=== PATIENT | female | born 1975 | race Caucasian/White ===

== ENCOUNTER 2020-09-20 17:41 | Outpatient (CLI) | payer OTHER, SELFPAY | END 2020-09-20 17:42 | disposition home or self-care (01) | LOC: ANHCOVIDVC 17:42 | PROVIDERS: PCP Physician Assistant | DX: Z23 Encounter for immunization (principal) | CPT/HCPCS: 0001A; 91300 ==

== ENCOUNTER 2020-10-11 17:42 | Outpatient (CLI) | payer OTHER, SELFPAY | END 2020-10-11 17:43 | disposition home or self-care (01) | LOC: ANHCOVIDVC 17:42 | PROVIDERS: PCP Physician Assistant | DX: Z23 Encounter for immunization (principal) | CPT/HCPCS: 0002A; 91300 ==

== ENCOUNTER 2020-12-09 10:35 | Outpatient (CLI) | payer OTHER, SELFPAY ==
--- NOTE | 2020-12-09 10:45 | ECG_ITS ---
Measurements Intervals [place] Rate: 80 P: 67 NM: 143 QRS: 62 QRSD: 91 T: 66 QT: 347 QTc: 403 Interpretive Statements SINUS RHYTHM DELAYED PRECORDIAL R/S TRANSITION BORDERLINE T WAVE ABNORMALITY- ANTERIOR LEADS BORDERLINE ECG Electronically Signed On 12-09-2020 15:55:04 CDT by Tomas Reed D.O.
== END 2020-12-09 10:36 | disposition home or self-care (01) ==
PROVIDERS: PCP Physician Assistant; Visit Provider Obstetrics & Gynecology
DX: F17.210 Nicotine dependence, cigarettes, uncomplicated (principal); Z01.818 Encounter for other preprocedural examination; R94.31 Abnormal electrocardiogram [ECG] [EKG]
CPT/HCPCS: 93005

== ENCOUNTER → 2020-12-11 00:52 | Outpatient (CLI) | payer OTHER, SELFPAY ==
[2020-12-11 19:37] LABS: SARS-CoV-2 RNA PCR Negative
== END ==
PROVIDERS: PCP Physician Assistant; Visit Provider Obstetrics & Gynecology
DX: Z01.812 Encounter for preprocedural laboratory examination (principal); Z20.822 Contact with and (suspected) exposure to COVID-19
CPT/HCPCS: C9803; U0003; U0005

== ENCOUNTER 2020-12-15 00:08 | Day surgery (SDC) | payer OTHER, SELFPAY ==
[2020-12-03 15:38] VITALS: BMI 22.1
--- NOTE | 2020-12-14 10:36 | WPDANESEPPF ---
Anes - Initial Pre Proc Eval Procedure: Operation Date: 12/15/20 10:00 Proposed Procedures p Hysteroscopy, Angelia Endometrial Ablation, Laparoscopic Bilateral Salpingectomy - Sonu Mercado MD Date/Time: 12/14/20 10:36 Surgeon: Sonu Mercado MD Pre Op Diagnosis: menorrhaghia Patient Data Age: 45 Gender: F Height: 1.6 m Weight: 56.7 kg Allergies Allergy/AdvReac Type Severity Reaction Status Date / Time No Known Allergies Allergy Verified 12/03/20 15:36 Home Medications Medication Instructions Recorded Confirmed Type loratadine [Claritin] 10 mg PO DAILY 12/03/20 12/03/20 History norethindrone (contraceptive) 0.35 mg PO DAILY 12/03/20 12/03/20 History [Norlyda] [facility] Past Medical History Medical History Anxiety Depression Smoker Social History Social History Smoking packs per day: 1 Smoking cigarettes per day: 20.0 Years smoked: 22 Smoking pack-years: 22.00 Smoking status: Current every day smoker Tobacco type: cigarettes Alcohol intake: current Drinks per week: 12 Substance use: never Substance use type: does not use Spiritual care concerns: No Anes - Eval Final PreProcedure Day of Procedure 12/14/20 10:36 Patient weight: normal Heart: regular rate and rhythm Lungs: clear to auscultation and normal air movement Airway: Mallampati scale class II Neurological: alert and oriented Last oral intake: >/= 8 hours ASA classification: II Emergent: no Anesthetic plan: proceed Anesthesia type and monitoring: general ETT Informed Consent: The patient's anesthetic plan and its attendant risks and benefits were discussed with the patient/family/POA. Questions were solicited and answers provided to the satisfaction of the patient/family/POA.
[2020-12-15] VITALS (9 sets, daily range): BP systolic 95–111; BP diastolic 54–72; PULSE 51–85; RESP 16–18; TEMP 36.4–36.8; O2SAT 99–100
[2020-12-15] MEDS: LACTATED RINGERS 1,000 ML 30 ML IV CONT ×2 (08:45→12:17)
[2020-12-15] MEDS: ACETAMINOPHEN 500 MG TABLET 1000 MG PO (08:46)
[2020-12-15] MEDS: KETOROLAC 15 MG/ML VIAL (*BKC) IV PUSH (08:46)
--- NOTE | 2020-12-15 08:57 | P.PNAN_ITS ---
Anes - Initial Pre Proc Eval Procedure: Operation Date: 12/15/20 10:00 Proposed Procedures p Hysteroscopy, Angelia Endometrial Ablation, Laparoscopic Bilateral Salpingectomy - Sonu Mercado MD Date/Time: 12/15/20 08:57 Surgeon: Sonu Mercado MD Pre Op Diagnosis: menorrhaghia Patient Data Age: 45 Gender: F Height: 5 ft 3 in Weight: 56.7 kg Allergies Allergy/AdvReac Type Severity Reaction Status Date / Time No Known Allergies Allergy Verified 12/03/20 15:36 Home Medications Medication Instructions Recorded Confirmed Type loratadine [Claritin] 10 mg PO DAILY 12/03/20 12/03/20 History norethindrone (contraceptive) 0.35 mg PO DAILY 12/03/20 12/03/20 History [Norlyda] Patient hx anesthesia problems: none Family hx anesthesia problems: none [facility] Past Medical History Medical History Anxiety Depression Smoker Social History Social History Smoking packs per day: 1 Smoking cigarettes per day: 20.0 Years smoked: 22 Smoking pack-years: 22.00 Smoking status: Current every day smoker Tobacco type: cigarettes Alcohol intake: current Drinks per week: 12 Substance use: never Substance use type: does not use Living arrangements: alone Spiritual care concerns: No Anes - Eval Final PreProcedure Day of Procedure 12/15/20 08:57 Patient weight: normal Heart: regular rate and rhythm Lungs: clear to auscultation Airway: Mallampati scale Neurological: alert and oriented Last oral intake: >/= 8 hours ASA classification: II Emergent: no Anesthetic plan: proceed Anesthesia type and monitoring: general ETT and standard monitoring Informed Consent: The patient's anesthetic plan and its attendant risks and benefits were discussed with the patient/family/POA. Questions were solicited and answers provided to the satisfaction of the patient/family/POA.
[2020-12-15] MEDS: MIDAZOLAM HCL (*CRX) 2 MG/2 ML VIAL IV PUSH (09:02)
[2020-12-15 09:07] LABS: Glucose Point of Care 105 mg/dl (65-105)
--- NOTE | 2020-12-15 10:13 | WPDHPUPDATE1 ---
History and Physical Update Update Date/Time: 12/15/20 10:13 History and Physical has been reviewed, including an updated exam of the patient. There are NO changes in the patient's condition. Risks, benefits, and alternatives have been discussed and questions answered. Patient agrees to proceed with procedure.
--- NOTE | 2020-12-15 10:19 | W.PM.PROC2 ---
Procedure Note - Detailed Date of Procedure 12/15/20 Pre-op Diagnosis menorrhagia, unwanted fertility Post-op Diagnosis same Procedure Performed Laparoscopic bilateral salpingectomy, endometrial ablation with hysteroscopy Surgeon Sonu Mercado MD Anesthesia general Indications Unwanted fertility, severe menorrhagia Findings Normal appearing ovaries, fallopian tubes, uterus. Normal vulva vagina and cervix. The endometrial cavity was very narrow, the endometrium was very thin, the quality of the burn was questionable at the end of the procedure. Description of Procedure The patient dissect the operating room. She has prepped draped in the dorsal lithotomy position after induction of general anesthesia. The 5 mm left upper quadrant incision was made with a scalpel. A 5 mm trocar was inserted into the intra-abdominal cavity under direct visualization the scope. Pneumoperitoneum was achieved. A 5 mm left lower quadrant incision was made in the skin with a scalpel. A 5 mm trocar was inserted the intra-abdominal cavity under direct visualization the scope. A 5 mm infraumbilical incision was made with scalp on a 5 mm trocar was inserted intra-abdominal cavity under direct visualization of the scope. The bilateral fallopian tubes were removed. The mesosalpinx of the fallopian tube was cauterized from the ovary in a stepwise fashion using LigaSure cautery. It was cut and cauterized in stepwise fashion around to the corneal part of the uterus and fallopian tube. The tube was transected there in amputated. This was done with LigaSure cautery. The tube was taken at the left lower quadrant trocar site. The contralateral side was done in identical fashion. The patient tolerated this portion of the procedure well. The incisions were closed subcuticular for Monocryl and with Dermabond. A speculum was placed in the vagina. Cervix grasped with a tenaculum. The cervix was dilated to about 1 cm. The hysteroscope was inserted. The above findings were noted. Measurements were taken of the uterus and cervix. The uterine length was then entered into the hand piece of the Angelia device. The device was inserted into the intrauterine cavity. The array of the device was expanded. The balloon cuff was inflated. A good seal was achieved. The energy and safety cycles were initiated and completed. The array was collapsed and the instrument was withdrawn after deflating the balloon cuff. Hysteroscope was reinserted. Above findings were noted. The hysteroscope was removed. The patient tolerated the procedure well. The speculum and tenaculum were removed. She was taken to recovery in stable condition. Sponge lap and needle counts were correct x2. Estimated Blood Loss 15 Drains No Packing No Pathology none sent Complications No immediate complications Condition stable Disposition PACU
[2020-12-15] MEDS: fentaNYL CITRATE INJ (*CRX) 100 MCG/2 ML VIAL 25 MCG IV PUSH ×6 (11:55→12:40)
[2020-12-15] MEDS: oxyCODONE HCL (*CRX) 5 MG TAB IR PO (13:34)
== END 2020-12-15 14:18 | disposition home or self-care (01) ==
PROVIDERS: PCP Physician Assistant; Visit Provider Obstetrics & Gynecology
PROC: 0UDB8ZZ Extraction of Endometrium, Via Natural or Artificial Opening Endoscopic (ICD-10-PCS; CPT 58558; principal; 2020-12-15 10:00)
DX: N92.0 Excessive and frequent menstruation with regular cycle (principal); Z30.2 Encounter for sterilization; F41.8 Other specified anxiety disorders; F17.210 Nicotine dependence, cigarettes, uncomplicated; Z79.899 Other long term (current) drug therapy
CPT/HCPCS: 58563; 58661; 82948; 88302; 93005; A9270; C9803; J1100; J1885; J2250; J2405; J2704; J2710; J3010; J7030; J7120; U0003; U0005

== ENCOUNTER 2022-07-12 17:13 | Outpatient (CLI) | payer OTHER, SELFPAY ==
--- NOTE | ~2022-07-12 | XR_ITS ---
Right Shoulder Technique: AP and scapular Y views were obtained. Clinical History: Pain Findings: No fracture or dislocation is seen. Osseous alignment is anatomic. The glenohumeral and acr omioclavicular joint spaces are preserved. There is calcific density at the supraspinatus tendon inse rtion region, compatible with calcific tendinitis. Impression: Calcific tendinitis of the rotator cuff, most likely supraspinatus tendon. No fracture or dislocation. Reviewed, dictated and finalized at location M. ETRICS TEACHER Impression: Calcific tendinitis of the rotator cuff, most likely supraspinatus tendon. No fracture or dislocation.
--- NOTE | ~2022-07-12 | XR_ITS ---
Cervical Spine: AP, lateral, open-mouth views Clinical History: Pain Findings: The normal lordotic curve is maintained. The vertebral bodies and posterior elements appea r intact. The intervertebral disc spaces are well maintained. Pre-vertebral soft tissues are unremar kable. Impression: No significant abnormality is seen. Reviewed, dictated and finalized at [facility]. [facility] WEIGHER Impression: No significant abnormality is seen.
== END 2022-07-12 17:14 | disposition home or self-care (01) ==
PROVIDERS: PCP Physician Assistant; Visit Provider Physician Assistant
DX: M54.2 Cervicalgia (principal); M75.31 Calcific tendinitis of right shoulder
CPT/HCPCS: 72050; 73030

== ENCOUNTER 2023-08-07 17:03 | Outpatient (CLI) | payer OTHER, SELFPAY ==
--- NOTE | ~2023-08-07 | XR_ITS ---
EXAM: XR wrist RT min 3V DATE: 08/07/2023 17:48 HISTORY: G56.01 - Carpal tunnel syndrome, right upper limb . COMPARISON: None available. FINDINGS: Normal mineralization. No fracture or dislocation. No lytic or blastic lesion. Mild radioc arpal joint space narrowing. Small subchondral cysts are seen in the distal radius and the proximal c arpal row. No erosion or periosteal change. Soft tissues within normal limits. 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 Reviewed, dictated and finalized at location K. CING MACHINE OPERATOR
--- NOTE | ~2023-08-07 | XR_ITS ---
EXAM: XR shoulder RT min 2V DATE: 08/07/2023 17:48 HISTORY: M75.31 - Calcific tendinitis of right shoulder . COMPARISON: 07/12/2022. FINDINGS: Normal mineralization. No fracture or dislocation. No lytic or blastic lesion. Joint space s are amorphous calcification over the rotator cuff. Mild glenohumeral joint degenerative change. No erosion or periosteal change. Soft tissues within normal limits. IMPRESSION: Mild right glenohumeral osteoarthritis. Rotator cuff calcific tendinitis. Reviewed, dictated and finalized at location K. YL DISSOLVER OPERATOR IMPRESSION: Mild right glenohumeral osteoarthritis. Rotator cuff calcific tendi nitis.
== END 2023-08-07 17:04 | disposition home or self-care (01) ==
LOC: ANHIMG 17:04
PROVIDERS: PCP Physician Assistant; Visit Provider Orthopaedic Surgery
DX: G56.01 Carpal tunnel syndrome, right upper limb (principal); M75.31 Calcific tendinitis of right shoulder; M19.031 Primary osteoarthritis, right wrist; M19.011 Primary osteoarthritis, right shoulder
CPT/HCPCS: 73030; 73110